=== PATIENT | female | born 1995 | race Two or more races ===

== ENCOUNTER 2020-06-03 03:01 | Inpatient (IN) | payer OTHER ==
[~2020-06-03] VITALS: Ht 157.5 cm; Wt 87.1 kg
--- NOTE | 2020-06-03 03:45 | NUR ---
MS/RN ADMITTING NOTE PATIENT ARRIVED VIA GURNEY AND [facility] [employer] AND ACCOMPANIED TO ROOM 310-1. PATIENT IS ALERT AND ORIENTED X 4. ABLE TO MAKE NEEDS KNOWN. IV ACCESS TO RIGHT FOREARM INTACT AND PATENT. PATIENT ABLE TO AMBULATE WITH MINIMAL ASSIST. C/O PAIN TO ABDOMEN 5/10 - GIVEN PRN NORCO WITH POSITIVE EFFECT. PATIENT REMAINS NPO EXCEPT MEDS. NO SKIN ISSUES NOTED AT TIME OF ADMISSION. CALL LIGHT WITHIN REACH. ASPIRATION, FALL AND SAFETY PRECAUTIONS MAINTAINED. WILL CONTINUE TO MONITOR.
[2020-06-03] MEDS ORDERED: [UNRECOGNIZED DRUG - CODE] (03:52)
[2020-06-03] MEDS ORDERED: OMEP20CA15 PO (03:52)
[2020-06-03] MEDS ORDERED: SULI150T PO (03:52)
[2020-06-03] MEDS ORDERED: HYDR200T4 PO (03:52)
[2020-06-03] MEDS ORDERED: LEFL20TA PO (03:52)
[2020-06-03] MEDS ORDERED: ACETAMINOPHEN 325 MG TABLET PO PRN (05:00)
[2020-06-03] MEDS ORDERED: Z GUARD REMEDY 2 OZ OINT TP PRN (05:00)
[2020-06-03] MEDS ORDERED: MAGNESIUM HYDROXIDE 30 ML UDC PO PRN (05:00)
[2020-06-03] MEDS ORDERED: ZOLPIDEM TARTRATE 5 MG TABLET PO PRN (05:00)
[2020-06-03] MEDS ORDERED: diphenhydrAMINE HCL ELIX 25 MG/10 ML UDC PO PRN (05:00)
[2020-06-03] MEDS ORDERED: PANTOPRAZOLE 40 MG VIAL IV SCH (05:00)
[2020-06-03] MEDS ORDERED: MORPHINE SULFATE INJ 2 MG/ML DISP.SYRIN IV PRN (05:00)
[2020-06-03] MEDS: HYDROCODONE/APAP 5/325MG TABLET PO PRN ×2 (05:20→19:32)
[2020-06-03] MEDS: ENOXAPARIN SODIUM 40 MG/0.4 ML DISP.SYRIN SQ SCH (05:25)
[2020-06-03 06:12] LABS: BASOPHILS % (AUTO) 0.4 % (0.0-2.0); EOSINOPHILS % (AUTO) 3.2 % (0.0-6.0); HEMATOCRIT 38 % (33-45); HEMOGLOBIN 12.4 g/dL (11.5-14.8); LYMPHOCYTES # (AUTO) 2.1 /CMM (0.8-4.8); LYMPHOCYTES % (AUTO) 24.5 % (20.0-44.0); MEAN CORPUSCULAR HGB CONC 33 g/dl (31.0-36.0); MEAN CORPUSCULAR VOLUME 91 fL (82-100); MONOCYTES # (AUTO) 0.5 /CMM (0.1-1.30); MONOCYTES % (AUTO) 5.7 % (2.0-12.0); NEUTROPHILS # (AUTO) 5.7 /CMM (1.8-8.9); NEUTROPHILS % (AUTO) 66.2 % (43.0-81.0); PLATELET COUNT (AUTO) 270 /CMM (150-450); WHITE BLOOD COUNT (AUTO) 8.6 K/uL (4.3-11.0)
[2020-06-03 06:13] LABS: CALCIUM, SERUM 8.5 mg/dL (8.5-10.1); CREATININE 0.7 mg/dL (0.6-1.3); POTASSIUM 3.5 mmol/L (3.5-5.1)
[2020-06-03 06:14] LABS: LIPASE 252 U/L (73-393)
[2020-06-03 06:19] LABS: TRIGLYCERIDES 96 mg/dL (30-150)
--- NOTE | 2020-06-03 07:15 | NUR ---
MS/RN CLOSING NOTE PATIENT CURRENTLY SLEEPING IN BED. ALERT AND ORIENTED X 4. ABLE TO MAKE NEEDS KNOWN. NO COMPLAINTS OF PAIN AT THIS TIME. IV TO RIGHT FOREARM REMOVED D/T PAIN. ATTEMPTED IV PLACEMENT X 1. UNABLE TO GAIN ACCESS - PATIENT REQUESTING AM NURSE TO PLACE NEW IV THIS AM. PATIENT REMAINS NPO EXCEPT MEDS AT THIS TIME. NO C/O NAUSEA OR VOMITING THIS SHIFT. PATIENT AFEBRILE. CALL LIGHT WITHIN REACH. ASPIRATION, FALL AND SAFETY PRECAUTIONS MAINTAINED. WILL ENDORSE PLAN OF CARE TO ONCOMING SHIFT.
--- NOTE | 2020-06-03 07:20 | NUR ---
MS RN NOTES PATIENT IN BED ALERT ORIENTED X 3. NO ACUTE DISTRESS NOTED. BREATHING UNLABORED. SAFETY MEASURES IN PLACE. CALL LIGHT WITHIN REACH. WILL CONTINUE TO MONITOR ACCORDINGLY
[2020-06-03 08:00] VITALS: BP 113/72
[2020-06-03] MEDS: PANTOPRAZOLE 40 MG TABLET.DR PO SCH (08:21)
[2020-06-03] MEDS: HYDROXYCHLOROQUINE 200 MG TABLET PO SCH (09:00)
[2020-06-03] MEDS: SULINDAC 200 MG TABLET PO SCH ×3 (09:00→20:42)
[2020-06-03] MEDS: LEFLUNOMIDE 10 MG TABLET PO SCH (09:00)
[2020-06-03] MEDS: IV NS 0.9% 1,000 ML IV PRN ×2 (09:01→18:11)
[2020-06-03 16:00] VITALS: BP 116/72
--- NOTE | 2020-06-03 19:00 | NUR ---
MS RN NOTES PATIENT IN BED ALERT ORIENTED X3. NO ACUTE DISTRESS NOTED. BREATHING UNLABORED. IV ACCESS PATENT AND INTACT, NO REDNESS, NO SWELLING NOTED. SAFETY MEASURES IN PLACE. CALL LIGHT WITHIN REACH. WILL ENDORSE TO NIGHT NURSE FOR CONTINUITY OF CARE.
--- NOTE | 2020-06-03 19:40 | NUR ---
MS/RN OPENING NOTE RECEIVED PATIENT RESTING IN BED. AWAKE, ALERT AND ORIENTED X 4. ABLE TO MAKE NEEDS KNOWN. CONTINUES ON ROOM AIR WITH NO SIGNS OR SYMPTOMS OF RESPIRATORY DISTRESS NOTED. IV ACCESS TO LEFT HAND INTACT AND PATENT. CONTINUES ON IV NS. CONTINUES ON CLEAR LIQUID DIET WITH NO C/O NAUSEA OR VOMITING. COMPLAINTS OF ABDOMINAL PAIN 09/01 - GIVEN PRN NORCO WITH PENDING EFFECT. CALL LIGHT WITHIN REACH. ASPIRATION, FALL AND SAFETY PRECAUTIONS MAINTAINED. WILL CONTINUE TO MONITOR.
[2020-06-03 20:00] VITALS: BP 101/76
[2020-06-03] MEDS: ONDANSETRON HCL/PF 4 MG/2 ML VIAL IVP PRN (20:50)
--- NOTE | 2020-06-03 20:53 | NUR ---
MS/RN NOTE PATIENT WITH C/O NAUSEA. PATIENT HAD RECEIVED NORCO APPROX. 1HR AGO. CONTINUES ON CLEAR LIQUID DIET. NO VOMITING AT THIS TIME. PATIENT GIVEN PRN ZOFRAN WITH PENDING EFFECT. CONTINUES ON IV NS. VS: BP 101/76 HR 73 RR 20 T 98.4 O2 SAT 99% ROOM AIR. WILL CONTINUE TO MONITOR.
[2020-06-04] MEDS: IV NS 0.9% 1,000 ML IV PRN (01:40)
[2020-06-04 06:43] LABS: CALCIUM, SERUM 8.4 mg/dL (8.5-10.1); CREATININE 0.6 mg/dL (0.6-1.3); POTASSIUM 3.5 mmol/L (3.5-5.1)
--- NOTE | 2020-06-04 06:50 | NUR ---
MS/RN CLOSING NOTE PATIENT CURRENTLY RESTING IN BED. AWAKE, ALERT AND ORIENTED X 4. ABLE TO MAKE NEEDS KNOWN. NO COMPLAINTS OF PAIN AT THIS TIME. NO COMPLAINTS OF NAUSEA OR VOMITING AT THIS TIME. IV ACCESS TO LEFT HAND INTACT AND PATENT. CONTINUES ON IV NS @ 125ML/HR. COLLECTED URINE SAMPLE FOR URINE TEST THIS AM. CALL LIGHT WITHIN REACH. ASPIRATION, FALL AND SAFETY PRECAUTIONS MAINTAINED. WILL ENDORSE PLAN OF CARE TO ONCOMING SHIFT.
[2020-06-04 08:00] VITALS: BP 126/81
--- NOTE | 2020-06-04 08:00 | NUR ---
RN Opening note Received patient in bed. AO x 4, complain of nauseate and given Zofran via IV push. Skin is warm to touch, keep clean/dry, intact IV site. Respiratory even and unlabored on room air. Kept elevated HOB for ensure airway and aspiration precaution and lowering bed position for safety. Call light within reach, will continue to monitor.
[2020-06-04] MEDS: ENOXAPARIN SODIUM 40 MG/0.4 ML DISP.SYRIN SQ SCH (09:00)
[2020-06-04] MEDS: HYDROXYCHLOROQUINE 200 MG TABLET PO SCH (09:00)
[2020-06-04] MEDS: LEFLUNOMIDE 10 MG TABLET PO SCH (09:00)
[2020-06-04] MEDS: SULINDAC 200 MG TABLET PO SCH (09:00)
[2020-06-04] MEDS: PANTOPRAZOLE 40 MG TABLET.DR PO SCH (09:20)
[2020-06-04] MEDS: ONDANSETRON HCL/PF 4 MG/2 ML VIAL IVP PRN (09:20)
--- NOTE | 2020-06-04 11:28 | NUR ---
Patient going discharge to home, given discharge instruction include diet, follow up PCP and group leader after discharge and patient verbally understanding. Patient in stable condition denies nausea/vomit.
== END 2020-06-04 10:05 | disposition home or self-care (01) | DRG 282 ==
LOC: MED 03:01
PROVIDERS: ADMIT Nurse Practitioner Acute Care; ATTEND Nurse Practitioner Acute Care
DX: K85.90 Acute pancreatitis without necrosis or infection, unspecified (principal); M06.9 Rheumatoid arthritis, unspecified; E66.9 Obesity, unspecified; K29.70 Gastritis, unspecified, without bleeding; Z68.27 Body mass index [BMI] 27.0-27.9, adult; Z79.899 Other long term (current) drug therapy; Z20.822 Contact with and (suspected) exposure to COVID-19
CPT/HCPCS: 36415; 80048-TC; 80061-TC; 83690-TC; 83735-TC; 84100-TC; 84478-TC; 84703-TC; 85025-TC; 87081-TC; G0378; J1650; J2405; J7030; Q0163